=== PATIENT | male | born 1960 | race Caucasian/White ===

== ENCOUNTER 2018-01-22 07:51 | Day surgery (SDC) | payer MEDICAID ==
[~2018-01-22] VITALS: Ht 177.8 cm; Wt 65.1 kg
[2018-01-22] VITALS (7 sets, daily range): BP systolic 132–159; BP diastolic 65–94
[~2018-01-22 07:51] MED LIST: ALBU8HFA PO; DOCU-28 PO; FLO0.4C PO; OXYC-150 PO
[2018-01-22] MEDS ORDERED: normal saline 1000ml 1,000 ML IV PRN (08:20)
[2018-01-22 08:42] LABS: BASOPHILS % (AUTO) 0.2 % (0-1); EOSINOPHILS # (AUTO) 0.3 X10'3 (0-0.9); EOSINOPHILS % (AUTO) 3.8 % (0-6); HEMATOCRIT 35.3 % (42.0-52.0); HEMOGLOBIN 11.8 g/dl (14.0-17.9); LYMPHOCYTES # (AUTO) 1.2 X10'3 (1.1-4.8); LYMPHOCYTES % (AUTO) 15.2 % (21-51); MEAN CORPUSCULAR HEMOGLOBIN 28.6 PG (27.0-31.0); MEAN CORPUSCULAR HGB CONC 33.5 % (33.0-36.5); MEAN CORPUSCULAR VOLUME 85.3 FL (78-98); MONOCYTES # (AUTO) 0.7 X10'3 (0-0.9); MONOCYTES % (AUTO) 9.4 % (2-12); NEUTROPHILS # (AUTO) 5.4 X10'3 (1.8-7.7); NEUTROPHILS % (AUTO) 71.4 % (42-75); PLATELET COUNT 332 X10'3 (140-440); RED BLOOD COUNT 4.13 X10'6 (4.70-6.10); RED CELL DISTRIBUTION WIDTH 17.9 % (11.5-14.5); WHITE BLOOD COUNT 7.6 X10'3 (4.5-11.0)
[2018-01-22] MEDS ORDERED: PRE5T PO (09:00)
[2018-01-22] MEDS ORDERED: lupron INJ (09:02)
[2018-01-22] MEDS ORDERED: HYDR-565 PO (09:03)
[2018-01-22] MEDS ORDERED: DENO120V INJ (09:04)
[2018-01-22] MEDS ORDERED: ABIR500T PO (09:06)
[2018-01-22] MEDS ORDERED: ibuprofen PO (09:07)
[2018-01-22] MEDS ORDERED: midazolam 2 mg/2 ml injection IV PRN (09:20)
[2018-01-22] MEDS ORDERED: fentaNYL/PF 50MCG/1 ML 2ML syringe IV PRN (09:20)
[2018-01-22] MEDS ORDERED: heparin sodium, porcine/PF 100unit/ml 5ML syringe ICATH ONE (09:20)
[2018-01-22] MEDS ORDERED: LIDOcaine 1%/PF (10mg/ml) 5ml vial ONE (09:30)
[2018-01-22] MEDS ORDERED: fentaNYL/PF 50MCG/1 ML 2ML syringe ONE (09:43)
[2018-01-22] MEDS ORDERED: midazolam 2 mg/2 ml injection ONE (09:43)
[2018-01-22] MEDS ORDERED: heparin sodium, porcine/PF 100unit/ml 5ML syringe ONE (09:43)
== END 2018-01-22 12:10 | disposition home or self-care (01) ==
LOC: SSTAY O 07:51
PROVIDERS: ATTEND Radiology Diagnostic Radiology
DX: C61 Malignant neoplasm of prostate (principal); F17.210 Nicotine dependence, cigarettes, uncomplicated; M19.90 Unspecified osteoarthritis, unspecified site; Z96.649 Presence of unspecified artificial hip joint; Z87.81 Personal history of (healed) traumatic fracture; Z98.890 Other specified postprocedural states; Z88.0 Allergy status to penicillin; Z79.1 Long term (current) use of non-steroidal anti-inflammatories (NSAID); Z79.01 Long term (current) use of anticoagulants; Z79.899 Other long term (current) drug therapy
CPT/HCPCS: 36415; 36561; 76937; 77001; 85025; 99152; 99153; A6219; C1788; C1894; J1642; J2001; J2250; J3010; J7030; A4620

== ENCOUNTER 2018-02-16 10:44 | Emergency (ER) | payer MEDICAID ==
[~2018-02-16] VITALS: Ht 177.8 cm; Wt 65.0 kg
[~2018-02-16 10:44] MED LIST changes: +ABIR500T PO; -ALBU8HFA PO; +DENO120V INJ; -DOCU-28 PO; -FLO0.4C PO; +HYDR-565 PO; -OXYC-150 PO; +PRE5T PO; +ibuprofen PO; +lupron INJ
[2018-02-16 11:21] VITALS: BP 144/89
[2018-02-16] MEDS ORDERED: LIDOcaine 1% 30ml preserv. free vial IJ ONE (12:10)
[2018-02-16] MEDS ORDERED: SULF1TAB49 PO (12:13)
== END 2018-02-16 12:55 | disposition home or self-care (01) ==
LOC: ER 10:44
DX: L02.811 Cutaneous abscess of head [any part, except face] (principal); L02.11 Cutaneous abscess of neck; L02.212 Cutaneous abscess of back [any part, except buttock and flank]; L03.011 Cellulitis of right finger; J45.909 Unspecified asthma, uncomplicated; F12.10 Cannabis abuse, uncomplicated; Z85.46 Personal history of malignant neoplasm of prostate; Z88.0 Allergy status to penicillin; Z79.899 Other long term (current) drug therapy
CPT/HCPCS: 10061; 87070; 87077; 87186; 99284; J3490

== ENCOUNTER 2018-02-18 13:32 | Emergency (ER) | payer MEDICAID ==
[~2018-02-18] VITALS: Ht 175.3 cm; Wt 67.0 kg
[~2018-02-18 13:32] MED LIST changes: +SULF1TAB49 PO
[2018-02-18] MEDS ORDERED: LIDOcaine 1.5% w/epinephrine 1:200,000 5ml ampul IJ ONE (14:40)
[2018-02-18] MEDS ORDERED: CEPH-572 PO (15:24)
[2018-02-18 15:40] VITALS: BP 99/70
== END 2018-02-18 15:48 | disposition home or self-care (01) ==
LOC: ER 13:32
DX: L02.511 Cutaneous abscess of right hand (principal); L02.512 Cutaneous abscess of left hand; J45.909 Unspecified asthma, uncomplicated; G89.29 Other chronic pain; F12.10 Cannabis abuse, uncomplicated; Z98.890 Other specified postprocedural states; Z85.46 Personal history of malignant neoplasm of prostate; Z88.0 Allergy status to penicillin; Z79.899 Other long term (current) drug therapy
CPT/HCPCS: 26011; 99284; A6255; A6446; A6449; J3490; 26010; 99283

== ENCOUNTER 2018-03-17 14:01 | Emergency (ER) | payer MEDICAID ==
[~2018-03-17] VITALS: Ht 177.8 cm; Wt 62.0 kg
[~2018-03-17 14:01] MED LIST changes: -SULF1TAB49 PO
[2018-03-17] MEDS ORDERED: HYDROcodone/acetaminophen 10/325mg tab PO ONE (16:20)
[2018-03-17 17:12] LABS: BASOPHILS % (AUTO) 0.2 % (0-1); EOSINOPHILS # (AUTO) 0.1 X10'3 (0-0.9); EOSINOPHILS % (AUTO) 1.4 % (0-6); HEMATOCRIT 28.8 % (42.0-52.0); HEMOGLOBIN 9.7 g/dl (14.0-17.9); LYMPHOCYTES # (AUTO) 0.9 X10'3 (1.1-4.8); LYMPHOCYTES % (AUTO) 12.3 % (21-51); MEAN CORPUSCULAR HEMOGLOBIN 28.5 PG (27.0-31.0); MEAN CORPUSCULAR HGB CONC 33.7 % (33.0-36.5); MEAN CORPUSCULAR VOLUME 84.4 FL (78-98); MEAN PLATELET VOLUME 7.3 FL (7.4-10.4); MONOCYTES # (AUTO) 0.6 X10'3 (0-0.9); NEUTROPHILS # (AUTO) 5.5 X10'3 (1.8-7.7); NEUTROPHILS % (AUTO) 78.1 % (42-75); PLATELET COUNT 322 X10'3 (140-440); RED BLOOD COUNT 3.41 X10'6 (4.70-6.10)
[2018-03-17 17:38] LABS: ALANINE AMINOTRANSFERASE 17 U/L (12-78); ALBUMIN 3.1 G/DL (3.4-5.0); ALBUMIN/GLOBULIN RATIO 0.7 (1.1-1.5); ALKALINE PHOSPHATASE 623 IU/L (46-116); ANION GAP 11 (8-16); ASPARTATE AMINO TRANSFERASE 21 U/L (10-37); BILIRUBIN,TOTAL 0.3 MG/DL (0.1-1.0); BLOOD UREA NITROGEN 25 MG/DL (7-18); BUN/CREATININE RATIO 32.1 (5.4-32.0); CALCIUM 8.8 MG/DL (8.5-10.1); CHLORIDE 103 MMOL/L (99-107); CREATININE 0.78 MG/DL (0.60-1.10); GLUCOSE 124 MG/DL (70-104); POTASSIUM 4.4 MMOL/L (3.5-5.1); SODIUM 141 MMOL/L (135-145); TOTAL CARBON DIOXIDE 26.8 MMOL/L (24-32); TOTAL PROTEIN 7.8 G/DL (6.4-8.2); eGFR > 90 ML/MIN
[2018-03-17 18:27] LABS: CLARITY,URINE CLEAR (Clear); COLOR,URINE YELLOW (Yellow); GLUCOSE, URINE NEGATIVE (Neg); KETONES,URINE NEGATIVE (Neg); LEUKOCYTE ESTERASE ,URINE NEGATIVE (Neg); NITRITES, URINE NEGATIVE (Neg); OCCULT BLOOD,URINE NEGATIVE (Neg); PROTEIN,URINE TRACE mg/dl (Neg)
[2018-03-17 18:28] LABS: UA COLLECTION TYPE CLN CATCH MIDSTREAM
[2018-03-17 18:40] LABS: BACTERIA,URINE NONE SEEN /HPF (Neg); RBC,URINE 0-2 /HPF (0-2); SQUAMOUS EPITHELIAL CELL,UR NONE SEEN /LPF (FEW); WBC,URINE 0-4 /HPF (0-4)
[2018-03-17 19:18] VITALS: BP 125/80
== END 2018-03-17 19:21 | disposition home or self-care (01) ==
LOC: ER 14:03
DX: R33.9 Retention of urine, unspecified (principal); C61 Malignant neoplasm of prostate; F12.10 Cannabis abuse, uncomplicated; J45.909 Unspecified asthma, uncomplicated; G89.29 Other chronic pain; Z98.890 Other specified postprocedural states; Z56.0 Unemployment, unspecified; Z88.0 Allergy status to penicillin; Z79.899 Other long term (current) drug therapy
CPT/HCPCS: 36415; 51702; 80053; 81001; 85025; 99285; A4315